=== PATIENT | male | born 1955 | race Caucasian/White ===

== ENCOUNTER → 2021-08-04 | Outpatient (CLI) | payer MEDICARE ==
--- NOTE | 2021-08-04 17:40 | REPVR ---
PROCEDURE INFORMATION: Exam: MR Lumbar Spine Without Contrast Exam date and time: 08/04/2021 3:16 PM Age: 65 years old Clinical indication: Lumbago with sciatica; Bilateral; Additional info: Teddy lbp w/ teddy sciatica lumbar radiculopathy TECHNIQUE: Imaging protocol: Multiplanar magnetic resonance images of the lumbar spine without intravenous contrast. COMPARISON: No relevant prior studies available. FINDINGS: No abnormal marrow signal. Lumbar vertebral body heights are maintained. No cord compression. No abnormal cord signal. Conus medullaris terminates at the L1 level. Paravertebral soft tissues are unremarkable. L1-L2: No significant canal or foraminal narrowing. L2-L3: No significant canal or foraminal narrowing. L3-L4: Broad-based disc bulge and facet hypertrophy cause mild canal narrowing and mild bilateral foraminal narrowing. L4-L5: Large inferiorly oriented central disc extrusion causing moderate to severe canal narrowing with crowding of the cauda equina. Effacement of the bilateral lateral recesses with compression of the traversing bilateral L5 nerve roots. Along with broad-based disc bulge and facet hypertrophy there is moderate bilateral foraminal narrowing. L5-S1: Broad-based disc bulge and facet hypertrophy cause mild canal narrowing and moderate bilateral foraminal narrowing. IMPRESSION: 1. 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 Recommend surgical consultation. 2. Other spondylotic changes of the lumbar spine, as above. Electronically signed by: Ceasar Delgado On 08/04/2021 17:39:59 PM
== END ==
LOC: M RAD 14:25
PROVIDERS: ATTEND Nurse Practitioner
DX: M54.42 Lumbago with sciatica, left side (principal); M54.41 Lumbago with sciatica, right side; M54.16 Radiculopathy, lumbar region

== ENCOUNTER → 2022-05-11 | Outpatient (CLI) | payer MEDICARE | LOC: M CARPUL 12:08 | PROVIDERS: ATTEND Physician Assistant Medical | DX: I34.0 Nonrheumatic mitral (valve) insufficiency (principal); I77.89 Other specified disorders of arteries and arterioles ==

== ENCOUNTER → 2024-02-11 | Outpatient (CLI) | payer MEDICARE | LOC: M PLARAD 08:35 | PROVIDERS: ATTEND Nurse Practitioner | DX: M48.02 Spinal stenosis, cervical region (principal); M47.892 Other spondylosis, cervical region; M50.30 Other cervical disc degeneration, unspecified cervical region ==